=== PATIENT | male | born 1970 | race Caucasian/White ===

== ENCOUNTER 2017-08-11 15:50 | Emergency (ER) | payer SELFPAY ==
[2017-08-11 15:58] VITALS: BP 135/92; BMI 22.1
--- NOTE | 2017-08-11 18:08 | DR.GENAD ---
HPI - PCP Primary Care Physician: NFD - Complaint/Symptoms Chief Complaint Doctors Comments: Patient admits to myalgia, headache, lymph adenopathy of left axilla for three days. He states that he has nausea but no vomiting or diarrhea. Chief Complaint:: NOTICED LUMP UNDER LEFT ARMPIT ABOUT SIX DAYS AGO/HEADACHES X 3 DAYS - Source History Provided: Patient - Mode of Arrival Mode of Arrival: Ambulatory - Timing Onset of Chief Complaint: 08/11/17 PMH - PMH Past Medical History: No Past Surgical History: Yes Surgical History: Ortho Surgery - Family History History of Family Medical Conditions: Yes Family Medical History: Diabetes Mellitus - Social History Does patient currently use any type of tobacco product: No Have you used tobacco products in the last 12 months: No Type of Tobacco Use: None Does any household member use tobacco: No Alcohol Use: Rarely Do you use any recreational Drugs:: No Lives With: Alone Lives Where: Home - infectious screening In the last 2 months have you had wt loss of >10#?: NO Have you had fever, night sweats or hemotysis?: No Have you traveled outside the country in the last 6 months?: No Isolation: Standard ROS - Review of Systems Eyes: No Symptoms Reported ENTM: No Symptoms Reported Respiratoy: No Symptoms Reported Cardiovascular: No Symptoms Reported Gastrointestinal/Abdominal: No Symptoms Reported Genitourinary: No Symptoms Reported Neurological: No Symptoms Reported Musculoskeletal: Other (left axilla adenopathy) Integumentary: No Symptoms Reported Hematologic/Lymphatic: No Symptoms Reported Endocrine: No Symptoms Reported Psychiatric: No Symptoms Reported All Other Systems: Reviewed and Negative PE - Vital Signs Vitals: Temperature 97.8 F Pulse Rate 89 Respiratory Rate 20 Blood Pressure 135/92 O2 Sat by Pulse Oximetry 100 - General General Appearance: Alert - Head Head Exam: Normal Inspection, Atraumatic - Eyes Eye exam: Normal Appearance, PERRL, EOMI - ENT ENT Exam: Normal Exam External Ear Exam: Normal External Inspection TM/Canal Exam: Bilateral Normal Nose Exam: Normal Nose Exam Mouth Exam: Normal Inspection Throat Exam: Normal Inspection - Neck Neck Exam: Normal Inspection - Chest Chest Inspection: Normal Inspection - Respiratory Respiratory Exam: Normal Lung Sounds Bilat Respiratory Exam: Bilateral Clear to Auscultation - Cardiovascular Cardiovascular Exam: Regular Rate - Abdominal Exam Abdominal Exam: Normal Inspection, Normal Bowel Sounds Abdominal Tenderness: negative: RUQ, RLQ, LUQ, LLQ, Epigastrium, Suprapubic, Diffuse, Mild, Moderate, Severe, Other - Extremities Extremities Exam: Normal Inspection, Full ROM - Back Back Exam: Normal Inspection - Neurologic Neurological Exam: Alert, Oriented X3, CN II-XII Intact - Psychiatric Psychiatric Exam: Normal Affect - Skin Skin Exam: Warm, Dry, Intact, Other (left axillar a non-erythematous nodule c/w adenopathy ) ROR - Labs Reviewed Laboratory Results Reviewed?: Yes (strep negative, influenza pending) Laboratory: Influenza Type A (PCR) Negative (NEGATIVE) 08/11/17 18:17 Influenza Type B (PCR) Negative (NEGATIVE) 08/11/17 18:17 Streptococcus Screen Negative (NEGATIVE) 08/11/17 18:16 - Diagnosis Discharge Problem: Left axillary adenopathy, Influenza-like illness - Discharge Plan Condition: Stable - Follow ups/Referrals Follow ups/Referrals: NFD,None [Primary Care Provider] - 3 days - Instructions
[2017-08-11] MEDS ORDERED: NS 1000 ML 1,000 ML IV ONE (18:09)
[2017-08-11] MEDS ORDERED: TORADOL 30 MG VIAL IVP ONE (18:09)
[2017-08-11] MEDS ORDERED: NS 1000 ML 1,000 ML ONE (18:10)
[2017-08-11] MEDS ORDERED: TORADOL 30 MG VIAL ONE (18:11)
[2017-08-11] MEDS ORDERED: ZOFRAN INJ 4 MG VIAL IVP ONE (18:17)
[2017-08-11] MEDS ORDERED: ZOFRAN INJ 4 MG VIAL ONE (18:18)
[2017-08-11] MEDS ORDERED: ROCEPHIN VIAL 1 GM IM ONE (19:32)
[2017-08-11] MEDS ORDERED: ROCEPHIN VIAL 1 GM ONE (19:35)
== END 2017-08-11 19:59 | disposition home or self-care (01) ==
LOC: ER 16:28
DX: R59.0 Localized enlarged lymph nodes (principal); J11.1 Influenza due to unidentified influenza virus with other respiratory manifestations
CPT/HCPCS: 87070; 87502; 87880; 96365; 96367; 96372; 96374; 96375; 99283; A4222; J0696; J1885; J2405